=== PATIENT | female | born 1975 | race African-American/Black ===

== ENCOUNTER 2020-10-16 12:43 | Inpatient (IN) | payer MEDICARE, MEDICAID ==
[2020-10-16] MEDS ORDERED: Morphine 4 MG/ML VIAL ONE (14:39)
[2020-10-16 15:04] LABS: SARS-CoV-2 NAA Rapid Test Not Detected (NotDetected)
[2020-10-16 16:02] LABS: #Lymphocytes 2.3 thou/uL (1.20-3.40); #Monocytes 1.5 thou/uL (0.11-0.59); #Neutrophils 13.4 thou/uL (1.40-6.50); %Eosinophils 0.1 % (0.0-10.0); %Lymphocytes 13.2 % (21.0-51.0); %Monocytes 8.6 % (0.0-10.0); %Neutrophils 78.1 % (42.0-75.0); Hemoglobin 13.1 g/dL (12.0-16.0); Mean Corpuscular HGB CONC 32.6 g/dL (32.0-36.0); Mean Corpuscular Hemoglobin 28.4 pg (27.0-31.0); Mean Corpuscular Volume 86.9 fL (78.0-98.0); Platelet Count 325 thou/uL (130-400); RBC Distribution Width 12.9 % (11.5-14.5); Red Blood Cell (RBC) Count 4.62 mill/uL (4.20-5.40); White Blood Cell (WBC) Count 17.2 thou/uL (4.8-10.8)
[2020-10-16 16:23] LABS: ALT (SGPT) 12 U/L (8-55); AST (SGOT) 13 U/L (5-34); Albumin 4.1 g/dL (3.5-5.0); Alkaline Phosphatase 68 U/L (40-110); Anion Gap 13 mmol/L (10-20); BUN (Urea Nitrogen) 8 mg/dL (7.0-18.7); Bilirubin, Total 0.5 mg/dL (0.2-1.2); Calc. Creatinine Clearance 0 mL/min (70-130); Calcium 8.9 mg/dL (7.8-10.44); Carbon Dioxide 24 mmol/L (22-29); Chloride 104 mmol/L (98-107); Globulin 3.2 g/dL (2.4-3.5); Glucose 89 mg/dL (70-105); Potassium 3.4 mmol/L (3.5-5.1); Protein, Total 7.3 g/dL (6.0-8.3); Sodium 138 mmol/L (136-145)
[2020-10-16] MEDS ORDERED: Fentanyl 100 MCG/2 ML VIAL ONE (17:31)
[2020-10-16] MEDS ORDERED: Lidocaine Viscous Sol 2% 15 ml UD Cup ONE (17:41)
[2020-10-16] MEDS ORDERED: Hydrocortisone 1% Cream 30 GM TUBE ONE (17:52)
[2020-10-16] MEDS ORDERED: Lidocaine 1% w/Epinephrine 1:100K 20 ML VIAL ONE (17:52)
[2020-10-16] MEDS ORDERED: Chlorhexidine Gluconate 15 ML UDCUP SSP ONE (17:52)
[2020-10-16] MEDS ORDERED: Clindamycin/D5W 900 mg/50 ml Premix Bag ONE ×3 (17:52→19:01)
[2020-10-16] MEDS ORDERED: Bacitracin Zinc Ointment 30 gm TUBE ONE (17:52)
[2020-10-16] MEDS ORDERED: Lidocaine 1% PF 5 ML VIAL ONE (18:15)
[2020-10-16] MEDS ORDERED: PROPOFOL 200 MG/20 ML VIAL ONE (18:15)
[2020-10-16] MEDS ORDERED: Ondansetron PF 4 MG/2 ML Vial ONE (18:15)
[2020-10-16] MEDS ORDERED: Labetalol HCl 100 MG/20 ML VIAL ONE ×2 (18:15→19:33)
[2020-10-16] MEDS ORDERED: ePHEDrine 50 MG/ML VIAL ONE (18:15)
[2020-10-16] MEDS ORDERED: PHENYLEPHRINE-NS 100 MCG/ML 10 ML SYRINGE ONE (18:15)
[2020-10-16] MEDS ORDERED: Morphine Sulfate 2 MG/ML SYRINGE SLOW IVP PRN ×2 (19:34→21:15)
[2020-10-16] MEDS ORDERED: Ketorolac Tromethamine 30 MG/ML VIAL IVP PRN ×2 (19:34→21:15)
[2020-10-16] MEDS ORDERED: Ondansetron HCl/PF 4 MG/2 ML Vial IVP PRN ×2 (19:34→21:15)
[2020-10-16] MEDS ORDERED: Meperidine HCl/PF 25 MG/ML VIAL SLOW IVP PRN ×2 (19:34→21:15)
[2020-10-16] MEDS ORDERED: HYDROmorphone 2 MG/ML VIAL SLOW IVP PRN ×2 (19:34→21:15)
[2020-10-16] MEDS ORDERED: Meperidine HCl/PF 25 MG/ML VIAL ONE (19:39)
[2020-10-16] MEDS ORDERED: Vancomycin 1 GM/200 ML BAG ONE (19:39)
[2020-10-16] MEDS ORDERED: Labetalol HCl 100 MG/20 ML VIAL SLOW IVP PRN (21:41)
[2020-10-16] MEDS ORDERED: MEROPENEM 1 GM/50 ML 1 GM in Premix Bag 1 BAG IVPB SCH (22:00)
[2020-10-16] MEDS ORDERED: HYDROcodone/Acetaminophen 5/325 mg Tablet PO PRN (23:48)
[2020-10-17] MEDS ORDERED: Morphine 4 MG/ML VIAL SLOW IVP PRN (01:08)
[2020-10-17 03:26] VITALS: BMI 26.7
[2020-10-17] MEDS: HYDROcodone/Acetaminophen 5/325 mg Tablet PO PRN ×4 (04:15→22:01)
[2020-10-17] MEDS ORDERED: MEROPENEM 1 GM/50 ML 1 GM in Premix Bag 1 BAG IVPB SCH (06:00)
[2020-10-17 06:17] LABS: Hemoglobin 11.9 g/dL (12.0-16.0); Mean Corpuscular HGB CONC 32.6 g/dL (32.0-36.0); Mean Corpuscular Hemoglobin 28.3 pg (27.0-31.0); Mean Corpuscular Volume 86.9 fL (78.0-98.0); Mean Platelet Volume 7.8 fL (7.4-10.4); Platelet Count 299 thou/uL (130-400); RBC Distribution Width 12.9 % (11.5-14.5); Red Blood Cell (RBC) Count 4.19 mill/uL (4.20-5.40); White Blood Cell (WBC) Count 18.7 thou/uL (4.8-10.8)
[2020-10-17 06:31] LABS: Anion Gap 12 mmol/L (10-20); BUN (Urea Nitrogen) 10 mg/dL (7.0-18.7); Calc. Creatinine Clearance 125 mL/min (70-130); Calcium 8.9 mg/dL (7.8-10.44); Carbon Dioxide 22 mmol/L (22-29); Chloride 104 mmol/L (98-107); Glucose 113 mg/dL (70-105); Potassium 4.4 mmol/L (3.5-5.1); Sodium 134 mmol/L (136-145)
[2020-10-17] MEDS ORDERED: Vancomycin 1 GM in Premix Bag 1 BAG IVPB SCH (08:00)
[2020-10-17] MEDS: Lisinopril 20 MG TAB PO SCH ×2 (08:20→08:21)
[2020-10-17] MEDS: predniSONE 20 MG TAB PO SCH (08:21)
[2020-10-17] MEDS: Famotidine 20 MG TAB PO SCH ×2 (08:21→21:04)
[2020-10-17 08:43] LABS: Band 2 % (5-11); Lymphocytes 11 % (21-51); MDiff Complete? YES; Neutrophil 87 % (42-75); Platelet Morphology Comment Appears Adequate; RBC Morphology Normal
[2020-10-17] MEDS ORDERED: Non-Formulary Item 1 EACH (Prednisone [Prednisone] 10 MG Tablet) PO SCH (09:00)
[2020-10-17] MEDS: Pyridostigmine Bromide IR 60 MG TAB PO SCH ×3 (09:26→21:08)
[2020-10-17] MEDS: Mycophenolate 250 MG CAP PO SCH ×2 (09:26→21:08)
[2020-10-17] MEDS: MEROPENEM 1 GM/50 ML 1 GM in Premix Bag 1 BAG IVPB SCH ×2 (09:26→18:34)
[2020-10-17] MEDS: Vancomycin HCl 1.5 GM in Sodium Chloride 0.9% 250 ML 300 ML IVPB SCH (15:39)
[2020-10-17] MEDS: Chlorhexidine Gluconate 15 ML UDCUP SSP SCH (18:34)
[2020-10-17] MEDS ORDERED: Mycophenolate 250 MG CAP PO SCH (22:00)
[2020-10-18] MEDS: MEROPENEM 1 GM/50 ML 1 GM in Premix Bag 1 BAG IVPB SCH ×3 (01:17→18:25)
[2020-10-18 06:27] LABS: #Lymphocytes 2.8 thou/uL (1.20-3.40); #Monocytes 1.2 thou/uL (0.11-0.59); #Neutrophils 12.7 thou/uL (1.40-6.50); %Basophils 0.1 % (0.0-1.0); %Eosinophils 0.3 % (0.0-10.0); %Lymphocytes 16.8 % (21.0-51.0); %Monocytes 6.9 % (0.0-10.0); %Neutrophils 75.9 % (42.0-75.0); Hemoglobin 12.5 g/dL (12.0-16.0); Mean Corpuscular HGB CONC 33.2 g/dL (32.0-36.0); Mean Corpuscular Hemoglobin 29.1 pg (27.0-31.0); Mean Corpuscular Volume 87.5 fL (78.0-98.0); Platelet Count 299 thou/uL (130-400); RBC Distribution Width 12.9 % (11.5-14.5); Red Blood Cell (RBC) Count 4.29 mill/uL (4.20-5.40); White Blood Cell (WBC) Count 16.7 thou/uL (4.8-10.8)
[2020-10-18] MEDS: Vancomycin HCl 1.5 GM in Sodium Chloride 0.9% 250 ML 300 ML IVPB SCH (06:38)
[2020-10-18] MEDS: HYDROcodone/Acetaminophen 5/325 mg Tablet PO PRN ×2 (06:41→20:31)
[2020-10-18 06:46] LABS: Anion Gap 12 mmol/L (10-20); BUN (Urea Nitrogen) 7 mg/dL (7.0-18.7); Calc. Creatinine Clearance 127 mL/min (70-130); Calcium 9.3 mg/dL (7.8-10.44); Carbon Dioxide 25 mmol/L (22-29); Chloride 104 mmol/L (98-107); Glucose 88 mg/dL (70-105); Potassium 3.6 mmol/L (3.5-5.1); Sodium 137 mmol/L (136-145)
[2020-10-18] MEDS: predniSONE 20 MG TAB PO SCH (09:30)
[2020-10-18] MEDS: Chlorhexidine Gluconate 15 ML UDCUP SSP SCH ×2 (09:30→17:32)
[2020-10-18] MEDS: Lisinopril 20 MG TAB PO SCH (09:32)
[2020-10-18] MEDS: Famotidine 20 MG TAB PO SCH ×2 (09:33→20:30)
[2020-10-18] MEDS: Pyridostigmine Bromide IR 60 MG TAB PO SCH ×4 (09:33→20:30)
[2020-10-18] MEDS: Mycophenolate 250 MG CAP PO SCH ×2 (09:38→20:31)
[2020-10-18] MEDS ORDERED: Ondansetron PF 4 MG/2 ML Vial IVP PRN (13:36)
[2020-10-18] MEDS ORDERED: MEROPENEM 1 GM/50 ML 1 GM in Premix Bag 1 BAG IVPB SCH (18:00)
[2020-10-19] MEDS ORDERED: MEROPENEM 1 GM/50 ML 1 GM in Premix Bag 1 BAG IVPB SCH (05:00)
[2020-10-19 05:37] LABS: #Basophils 0.1 thou/uL (0.0-0.2); #Lymphocytes 3.5 thou/uL (1.20-3.40); #Neutrophils 7.8 thou/uL (1.40-6.50); %Basophils 0.5 % (0.0-1.0); %Eosinophils 0.3 % (0.0-10.0); %Lymphocytes 28.2 % (21.0-51.0); %Monocytes 7.9 % (0.0-10.0); %Neutrophils 63.1 % (42.0-75.0); Hemoglobin 12.6 g/dL (12.0-16.0); Mean Corpuscular HGB CONC 32.2 g/dL (32.0-36.0); Mean Corpuscular Hemoglobin 28.1 pg (27.0-31.0); Mean Corpuscular Volume 87.4 fL (78.0-98.0); Mean Platelet Volume 7.3 fL (7.4-10.4); Platelet Count 332 thou/uL (130-400); RBC Distribution Width 12.8 % (11.5-14.5); Red Blood Cell (RBC) Count 4.48 mill/uL (4.20-5.40); White Blood Cell (WBC) Count 12.4 thou/uL (4.8-10.8)
[2020-10-19] MEDS: HYDROcodone/Acetaminophen 5/325 mg Tablet PO PRN ×2 (05:56→13:15)
[2020-10-19] MEDS: Lisinopril 20 MG TAB PO SCH (08:05)
[2020-10-19] MEDS: predniSONE 20 MG TAB PO SCH (08:05)
[2020-10-19] MEDS: Mycophenolate 250 MG CAP PO SCH (08:06)
[2020-10-19] MEDS: Famotidine 20 MG TAB PO SCH (08:06)
[2020-10-19] MEDS: Chlorhexidine Gluconate 15 ML UDCUP SSP SCH (08:07)
[2020-10-19] MEDS: Pyridostigmine Bromide IR 60 MG TAB PO SCH ×2 (09:19→13:07)
[2020-10-19 12:02] VITALS: BP 138/61; TEMP 98.6
== END 2020-10-19 14:35 | disposition home or self-care (01) | DRG 137 ==
LOC: ERS 12:43 → SDC/OP 16:30 → ERS 16:33 → SURG A 19:56
PROVIDERS: ADMIT Internal Medicine; ATTEND Internal Medicine
PROC: 0C9400Z Drainage of Buccal Mucosa with Drainage Device, Open Approach (ICD-10-PCS; principal; 2020-10-16)
PROC: 0CDWXZ1 Extraction of Upper Tooth, Multiple, External Approach (ICD-10-PCS; 2020-10-16)
DX: K04.7 Periapical abscess without sinus (principal); K12.2 Cellulitis and abscess of mouth; L03.211 Cellulitis of face; Z20.822 Contact with and (suspected) exposure to COVID-19; G70.00 Myasthenia gravis without (acute) exacerbation; I10 Essential (primary) hypertension; K21.9 Gastro-esophageal reflux disease without esophagitis; Z90.710 Acquired absence of both cervix and uterus; Z90.49 Acquired absence of other specified parts of digestive tract; Z88.8 Allergy status to other drugs, medicaments and biological substances; Z79.52 Long term (current) use of systemic steroids; Z79.899 Other long term (current) drug therapy
CPT/HCPCS: 36415; 80048; 80053; 80202; 83605; 85025; 87040; 87070; 87205; 96374; J2175; J2185; J2270; J2405; J2704; J3010; J3370; J3490; J7050; J7512; J7517; U0002; U0005